=== PATIENT | female | born 1975 | race Caucasian/White ===

== ENCOUNTER → 2017-03-09 11:44 | Outpatient (CLI) | payer OTHER | END | disposition home or self-care (01) | LOC: D.NM 11:44 | DX: R10.9 Unspecified abdominal pain (principal); R16.2 Hepatomegaly with splenomegaly, not elsewhere classified ==

== ENCOUNTER → 2018-05-05 13:15 | Outpatient (CLI) | payer OTHER | END | disposition home or self-care (01) | LOC: D.US 13:15 | DX: M79.604 Pain in right leg (principal) ==